=== PATIENT | male | born 1940 | race Caucasian/White ===

== ENCOUNTER 2021-02-20 14:06 | Emergency (ER) | payer MEDICARE, OTHER ==
--- NOTE | 2021-02-20 14:43 | EDM.PDOC ---
ED HPI GENERAL MEDICAL PROBLEM - General Chief Complaint: Upper Extremity Injury/Pain Stated Complaint: FISH HOOK IN RIGHT HAND Time Seen by Provider: 02/20/21 14:20 - History of Present Illness INITIAL COMMENTS - FREE TEXT/NARRATIVE: This is an 80-year-old male who comes into the ER after getting a fishhook embedded into the right fifth finger. The patient was fishing today and while handling a fish one of the trouble hook became embedded into his finger. The patient states he is not on any blood thinners. He did try to remove it initially but realized he could not. Patient tells me that he is a the medicines he takes are mostly for high blood pressure. He denies any numbness distal to the site of the fishhook. Right Hand Pain Score (Numeric/FACES): 2 - Related Data Allergies Allergy/AdvReac Type Severity Reaction Status Date / Time No Known Allergies Allergy Verified 02/20/21 14:21 Home Meds: Home Meds Pravastatin [Pravachol] 40 mg PO DAILY 02/20/21 [History] lisinopriL [Lisinopril] 10 mg PO DAILY 02/20/21 [History] Social & Family History - Recreational Drug Use Recreational Drug Use: No Review of Systems - Review of Systems Review Of Systems: Comprehensive ROS is negative, except as noted in HPI. Constitutional: Reports: No Symptoms Eyes: Reports: No Symptoms Ears: Reports: No Symptoms Nose: Reports: No Symptoms Mouth/Throat: Reports: No Symptoms Respiratory: Reports: No Symptoms Cardiovascular: Reports: No Symptoms GI/Abdominal: Reports: No Symptoms Genitourinary: Reports: No Symptoms Musculoskeletal: Reports: No Symptoms, Other (fISH HOOK TO rT 5TH FINGER.) Skin: Reports: No Symptoms Neurological: Reports: No Symptoms Psychiatric: Reports: No Symptoms ED EXAM, GENERAL - Physical Exam Exam: See Below Exam Limited By: No Limitations General Appearance: Alert, WD/WN, No Apparent Distress Ears: Normal External Exam, Normal Canal, Hearing Grossly Normal, Normal TMs Ear Exam: Bilateral Ear: Auricle Normal, Canal Normal, TM normal Nose: Normal Inspection, Normal Mucosa, No Blood Throat/Mouth: Normal Inspection, Normal Lips, Normal Teeth, Normal Gums, Normal Oropharynx, Normal Voice, No Airway Compromise Head: Atraumatic, Normocephalic Neck: Normal Inspection, Supple, Non-Tender, Full Range of Motion Respiratory/Chest: No Respiratory Distress, Lungs Clear, Normal Breath Sounds, No Accessory Muscle Use, Chest Non-Tender Cardiovascular: Normal Peripheral Pulses, Regular Rate, Rhythm, No Edema, No Gallop, No JVD, No Murmur, No Rub GI/Abdominal: Normal Bowel Sounds, Soft, Non-Tender, No Organomegaly, No Distention, No Abnormal Bruit, No Mass (Male) Exam: No Hernia, Normal Inspection, Normal Prostate, Circumcised Rectal (Males) Exam: Normal Exam, Normal Rectal Tone, Prostate Normal Back Exam: Normal Inspection, Full Range of Motion, NT Extremities: Normal Inspection, Normal Range of Motion, Non-Tender, No Pedal Edema, Normal Capillary Refill, Other (Examining the Rt hand reveals one hook of a treble hook imbedded in his 5th finger, palmar side over the middlt phalanx. No current bleeding, but a few drops of dried blood are present.) Neurological: Alert, Oriented, CN II-XII Intact, Normal Cognition, Normal Gait, Normal Reflexes, No Motor/Sensory Deficits Psychiatric: Normal Affect, Normal Mood Skin Exam: Warm, Dry, Intact, Normal Color, No Rash Lymphatic: No Adenopathy ED TRAUMA EXTREMITY PROCEDURES - Foreign Body Removal Indication:: Treatment plan I initially tried to remove the remaining trouble hooks from the liver with a large side cutter type pliers. The patient was not tolerating any movement of this so I then anesthetized the finger locally with 1% lidocaine without epi. After which I was able to remove the snap ring that held the trouble hook to the lower. Then attaching a cord to the hook that was embedded into the patient's finger just above the skin I was able to remove it with the first attempt using the string yank method. Patient tolerated this well. Finger was then cleansed thoroughly and antibiotic ointment and dressing was applied by nursing staff. The patient would like to be on short-term antibiotic to rule out any impending infection and I feel this is reasonable. He will be started on Keflex 500 mg twice daily for 4 days. Consent Obtained: Patient Anesthesia Type: Local Course - Vital Signs Last Recorded V/S: Last Vital Signs Temp 97.7 F 02/20/21 14:12 Pulse 73 02/20/21 14:12 Resp 18 02/20/21 14:12 BP 157/85 H 02/20/21 14:12 Pulse Ox 98 02/20/21 14:12 Departure - Departure Time of Disposition: 14:40 Disposition: Home, Self-Care 01 Condition: Good Clinical Impression: Fish hook injury of finger Qualifiers: Encounter type: initial encounter Laterality: right Qualified Code(s): S69.91XA - Unspecified injury of right wrist, hand and finger(s), initial encounter - Discharge Information Instructions: Hand or Foot Foreign Body, Adult Referrals: PCP,None [Primary Care Provider] - Forms: ED Department Discharge Care Plan Goals: take Keflex 500mg one tab by mouth twice daily for four days. Keep finger clean and dry . May change dressing and apply regular bandage tomorrow. Sepsis Event Note (ED) - Evaluation Sepsis Screening Result: No Definite Risk - Focused Exam Vital Signs: Vital Signs Temp Pulse Resp BP Pulse Ox 02/20/21 14:12 97.7 F 73 18 157/85 H 98
== END 2021-02-20 14:45 | disposition home or self-care (01) ==
LOC: LB.ED 14:06
DX: S60.456A Superficial foreign body of right little finger, initial encounter (principal); W45.8XXA Other foreign body or object entering through skin, initial encounter
CPT/HCPCS: 99282